=== PATIENT | male | born 1995 | race Caucasian/White ===

== ENCOUNTER 2022-06-15 09:53 | Emergency (ER) | payer OTHER ==
[2022-06-15 10:09] VITALS: BP 139/88; PULSE 86; RESP 18; TEMP 97.8; BMI 39.1
== END 2022-06-15 12:38 | disposition home or self-care (01) ==
LOC: JER 09:53 → JERFT 09:53
DX: S89.92XA Unspecified injury of left lower leg, initial encounter (principal); W01.0XXA Fall on same level from slipping, tripping and stumbling without subsequent striking against object, initial encounter; Y93.01 Activity, walking, marching and hiking
CPT/HCPCS: 73562-TC-LT-FY; 99283-25